=== PATIENT | female | born 1970 | race Caucasian/White ===

== ENCOUNTER 2017-03-21 17:22 | Emergency (ER) | payer MEDICAID ==
[~2017-03-21] VITALS: Ht 167.6 cm; Wt 98.1 kg
[~2017-03-21 17:22] MED LIST: CALCIUM; COLACE100 MG PO; FER300 PO; FERROUS SULFAT325 M2; FERROUS SULFAT325 M2 PO; FLUOXETINE10 M2 PO; MOTRIN; SIMVASTATIN10 M1 PO; VIT D; VITAMIN C500 M4 PO; ZES10 PO
[2017-03-21 18:24] VITALS: BP 143/91
== END 2017-03-21 18:24 | disposition home or self-care (01) ==
LOC: ED 17:22
DX: R05 Cough (principal); E78.5 Hyperlipidemia, unspecified; I10 Essential (primary) hypertension

== ENCOUNTER 2018-04-25 13:12 | Emergency (ER) | payer MEDICAID ==
[~2018-04-25] VITALS: Ht 167.6 cm; Wt 95.2 kg
[2018-04-25 13:17] VITALS: Ht 167.6 cm; Wt 95.2 kg
[2018-04-25 14:14] LABS: BASOPHIL % 0.6 % (0-2); PLATELET COUNT 318 x10^3mcL (130-400)
[2018-04-25 14:20] LABS: RED CELL DISTRIBUTION WIDTH 18.1 % (11.5-14.5)
[2018-04-25 14:28] LABS: CALCIUM 8.6 mg/dL (8.5-10.1); CARBON DIOXIDE 27.4 mmol/L (21-32); CHLORIDE SERUM 103 mmol/L (98-107); CREATININE SERUM 0.5 mg/dL (0.6-1.0); GFR1 > 60 mL/min; GLUCOSE SERUM 93 mg/dL (74-106); POTASSIUM SERUM 4.2 mmol/L (3.5-5.1); SODIUM SERUM 137 mmol/L (136-145)
[2018-04-25 14:31] LABS: ALBUMIN 3.6 g/dL (3.4-5.0); ALKALINE PHOSPHATASE 91 U/L (46-116); ALT/SGPT 15 U/L (14-59); AST/SGOT 9 U/L (15-37); BILIRUBIN TOTAL 0.2 mg/dL (0.20-1.00); CHOLESTEROL 173 mg/dL (<200); CHOLESTEROL/HDL RATIO 4.6; HDL CHOLESTEROL 38 mg/dL (40-60); LIPASE 122 IU/L (73-393); TOTAL PROTEIN, SERUM 7.6 g/dL (6.4-8.2); TRIGLYCERIDES 116 mg/dL (<150)
[2018-04-25 15:05] LABS: FREE THYROXINE INDEX 2.4 ug/dL (1.4-4.5); T4(THYROXINE) 7.5 ug/dL (4.7-13.3)
[2018-04-25 15:06] VITALS: BP 134/73
[2018-04-26 23:06] LABS: T3 TOTAL 1.12 ng/mL
== END 2018-04-25 15:06 | disposition home or self-care (01) ==
LOC: ED 13:12
PROVIDERS: Specialist
DX: F41.9 Anxiety disorder, unspecified (principal); D64.9 Anemia, unspecified; I10 Essential (primary) hypertension; E78.00 Pure hypercholesterolemia, unspecified
CPT/HCPCS: 36415; 83880; 84439

== ENCOUNTER 2018-10-07 16:40 | Emergency (ER) | payer MEDICAID ==
[~2018-10-07] VITALS: Ht 167.6 cm; Wt 94.3 kg
[2018-10-07 17:00] VITALS: Ht 167.6 cm; Wt 94.3 kg
[2018-10-07 18:00] LABS: BASOPHIL % 0.4 % (0-2); PLATELET COUNT 269 x10^3mcL (130-400)
[2018-10-07 18:03] LABS: RED CELL DISTRIBUTION WIDTH 15.4 % (11.5-14.5)
[2018-10-07 18:11] LABS: CALCIUM 8.3 mg/dL (8.5-10.1); CARBON DIOXIDE 27.6 mmol/L (21-32); CHLORIDE SERUM 103 mmol/L (98-107); CREATININE SERUM 0.7 mg/dL (0.6-1.0); GFR1 > 60 mL/min; GLUCOSE SERUM 107 mg/dL (74-106); POTASSIUM SERUM 3.5 mmol/L (3.5-5.1); SODIUM SERUM 137 mmol/L (136-145)
[2018-10-07 18:17] LABS: ALKALINE PHOSPHATASE 86 U/L (46-116); ALT/SGPT 17 U/L (14-59); AST/SGOT 12 U/L (15-37); BILIRUBIN TOTAL 0.2 mg/dL (0.20-1.00); LIPASE 81 IU/L (73-393); TOTAL PROTEIN, SERUM 7.2 g/dL (6.4-8.2)
[2018-10-07 18:18] LABS: ALBUMIN 3.2 g/dL (3.4-5.0)
[2018-10-07 19:20] LABS: UA SPECIFIC GRAVITY <=1.005 (1.005-1.035); microscopic required? YES; urine erythrocyte TRACE (NEGATIVE)
[2018-10-07 20:26] VITALS: BP 135/64
== END 2018-10-07 20:26 | disposition home or self-care (01) ==
LOC: ED 16:40
PROVIDERS: Emergency Medicine
DX: N39.0 Urinary tract infection, site not specified (principal); M54.17 Radiculopathy, lumbosacral region; I10 Essential (primary) hypertension; E78.00 Pure hypercholesterolemia, unspecified; F41.9 Anxiety disorder, unspecified; F32.9 Major depressive disorder, single episode, unspecified
CPT/HCPCS: J7030; Q0162

== ENCOUNTER 2019-07-16 08:35 | Emergency (ER) | payer MEDICAID ==
[~2019-07-16] VITALS: Ht 167.6 cm; Wt 96.3 kg
[2019-07-16 08:53] VITALS: Ht 167.6 cm; Wt 96.3 kg
[2019-07-16 10:50] LABS: CALCIUM 8.1 mg/dL (8.5-10.1); CARBON DIOXIDE 30.8 mmol/L (21-32); CHLORIDE SERUM 104 mmol/L (98-107); CREATININE SERUM 0.5 mg/dL (0.6-1.0); GFR1 > 60 mL/min; GLUCOSE SERUM 92 mg/dL (74-106); POTASSIUM SERUM 4.4 mmol/L (3.5-5.1); SODIUM SERUM 142 mmol/L (136-145)
[2019-07-16 10:54] LABS: ALBUMIN 3.5 g/dL (3.4-5.0); ALKALINE PHOSPHATASE 99 U/L (46-116); ALT/SGPT 24 U/L (14-59); AST/SGOT 13 U/L (15-37); BILIRUBIN TOTAL 0.27 mg/dL (0.20-1.00); CHOLESTEROL 160 mg/dL (<200); HDL CHOLESTEROL 43 mg/dL (40-60); LIPASE 68 IU/L (73-393); TOTAL PROTEIN, SERUM 7.6 g/dL (6.4-8.2)
[2019-07-16 10:57] LABS: BASOPHIL % 0.7 % (0-2); PLATELET COUNT 280 x10^3mcL (130-400)
[2019-07-16 11:20] LABS: RED CELL DISTRIBUTION WIDTH 17.1 % (11.5-14.5)
[2019-07-16 11:32] LABS: microscopic required? NO
[2019-07-16 12:17] LABS: urine erythrocyte NEGATIVE (NEGATIVE)
[2019-07-16 14:46] VITALS: BP 121/62
== END 2019-07-16 14:46 | disposition home or self-care (01) ==
LOC: ED 08:35
PROVIDERS: Emergency Medicine
DX: K21.9 Gastro-esophageal reflux disease without esophagitis (principal); L03.011 Cellulitis of right finger; E78.00 Pure hypercholesterolemia, unspecified; F32.9 Major depressive disorder, single episode, unspecified; I10 Essential (primary) hypertension; F41.9 Anxiety disorder, unspecified; Z98.890 Other specified postprocedural states
CPT/HCPCS: J3490; J7030; Q0092

== ENCOUNTER 2019-08-07 11:27 | Emergency (ER) | payer MEDICAID ==
[~2019-08-07] VITALS: Ht 167.6 cm; Wt 96.2 kg
[2019-08-07 11:32] VITALS: Ht 167.6 cm; Wt 96.2 kg
[2019-08-07 12:08] LABS: BASOPHIL % 0.3 % (0-2); PLATELET COUNT 293 x10^3mcL (130-400)
[2019-08-07 12:23] LABS: CALCIUM 8.6 mg/dL (8.5-10.1); CARBON DIOXIDE 28.7 mmol/L (21-32); CHLORIDE SERUM 105 mmol/L (98-107); CREATININE SERUM 0.6 mg/dL (0.6-1.0); GFR1 > 60 mL/min; GLUCOSE SERUM 92 mg/dL (74-106); POTASSIUM SERUM 4.2 mmol/L (3.5-5.1); SODIUM SERUM 140 mmol/L (136-145)
[2019-08-07 12:28] LABS: ALBUMIN 3.4 g/dL (3.4-5.0); ALKALINE PHOSPHATASE 95 U/L (46-116); ALT/SGPT 17 U/L (14-59); AST/SGOT 14 U/L (15-37); BILIRUBIN TOTAL 0.2 mg/dL (0.20-1.00); TOTAL PROTEIN, SERUM 7.5 g/dL (6.4-8.2)
[2019-08-07 12:38] LABS: RED CELL DISTRIBUTION WIDTH 16.7 % (11.5-14.5)
[2019-08-07 13:54] VITALS: BP 122/71
== END 2019-08-07 13:54 | disposition home or self-care (01) ==
LOC: ED 11:27
PROVIDERS: Specialist
DX: R07.89 Other chest pain (principal); F41.9 Anxiety disorder, unspecified; I10 Essential (primary) hypertension; E78.00 Pure hypercholesterolemia, unspecified; F32.9 Major depressive disorder, single episode, unspecified
CPT/HCPCS: 36415; Q0092

== ENCOUNTER 2020-06-23 22:14 | Emergency (ER) | payer MEDICAID ==
[~2020-06-23] VITALS: Ht 167.6 cm; Wt 102.1 kg
[2020-06-23 22:36] VITALS: Ht 167.6 cm; Wt 102.1 kg
[2020-06-24 02:07] LABS: BASOPHIL % 0.4 % (0-2); PLATELET COUNT 237 x10^3mcL (130-400)
[2020-06-24 02:08] LABS: RED CELL DISTRIBUTION WIDTH 14.7 % (11.5-14.5)
[2020-06-24 02:27] LABS: ALKALINE PHOSPHATASE 70 U/L (46-116); ALT/SGPT 18 U/L (14-59); AST/SGOT 10 U/L (15-37); BILIRUBIN TOTAL 0.19 mg/dL (0.20-1.00); CARBON DIOXIDE 33.4 mmol/L (21-32); CHLORIDE SERUM 106 mmol/L (98-107); CREATININE SERUM 0.7 mg/dL (0.6-1.0); GFR1 > 60 mL/min; GLUCOSE SERUM 96 mg/dL (74-106); POTASSIUM SERUM 4.1 mmol/L (3.5-5.1); SODIUM SERUM 140 mmol/L (136-145); TOTAL PROTEIN, SERUM 6.7 g/dL (6.4-8.2)
[2020-06-24 03:01] LABS: ALBUMIN 3.2 g/dL (3.4-5.0)
[2020-06-24 03:32] VITALS: BP 128/76
== END 2020-06-24 03:35 | disposition home or self-care (01) ==
LOC: ED 22:14
PROVIDERS: Emergency Medicine
DX: B34.9 Viral infection, unspecified (principal); K29.70 Gastritis, unspecified, without bleeding; E86.0 Dehydration; I10 Essential (primary) hypertension; E78.00 Pure hypercholesterolemia, unspecified
CPT/HCPCS: J1885; J2405; J7030

== ENCOUNTER 2020-06-25 23:00 | Emergency (ER) | payer MEDICAID ==
[~2020-06-25] VITALS: Ht 162.6 cm; Wt 98.4 kg
[2020-06-25 23:09] VITALS: Ht 162.6 cm; Wt 98.4 kg
[2020-06-26 00:57] LABS: UA SPECIFIC GRAVITY 1.025 (1.005-1.035); microscopic required? YES; urine erythrocyte 3+ (NEGATIVE)
[2020-06-26 02:53] VITALS: BP 134/58
== END 2020-06-26 02:53 | disposition home or self-care (01) ==
LOC: ED 23:00
PROVIDERS: Emergency Medicine
DX: N39.0 Urinary tract infection, site not specified (principal); K59.00 Constipation, unspecified; I10 Essential (primary) hypertension; E78.00 Pure hypercholesterolemia, unspecified
CPT/HCPCS: J1885; Q0162

== ENCOUNTER 2020-06-28 10:35 | Emergency (ER) | payer MEDICAID ==
[~2020-06-28] VITALS: Ht 167.6 cm; Wt 97.1 kg
[2020-06-28 11:53] LABS: BASOPHIL % 0.4 % (0-2); PLATELET COUNT 319 x10^3mcL (130-400)
[2020-06-28 11:57] LABS: RED CELL DISTRIBUTION WIDTH 14.6 % (11.5-14.5)
[2020-06-28 12:02] LABS: CHLORIDE SERUM 101 mmol/L (98-107); CREATININE SERUM 0.8 mg/dL (0.6-1.0); GFR1 > 60 mL/min; GLUCOSE SERUM 99 mg/dL (74-106); POTASSIUM SERUM 4.4 mmol/L (3.5-5.1); SODIUM SERUM 138 mmol/L (136-145)
[2020-06-28 12:03] LABS: microscopic required? NO
[2020-06-28 12:06] LABS: ALBUMIN 3.6 g/dL (3.4-5.0); ALKALINE PHOSPHATASE 79 U/L (46-116); ALT/SGPT 31 U/L (14-59); AST/SGOT 17 U/L (15-37); BILIRUBIN TOTAL 0.2 mg/dL (0.20-1.00); HDL CHOLESTEROL 38 mg/dL (40-60); MAGNESIUM 2.4 mg/dL (1.8-2.4); TOTAL PROTEIN, SERUM 7.6 g/dL (6.4-8.2)
[2020-06-28 12:07] LABS: CHOLESTEROL 229 mg/dL (<200)
[2020-06-28 12:54] LABS: UA SPECIFIC GRAVITY <=1.005 (1.005-1.035); urine erythrocyte NEGATIVE (NEGATIVE)
[2020-06-28 16:14] VITALS: BP 143/72
== END 2020-06-28 16:14 | disposition home or self-care (01) ==
LOC: ED 10:35
PROVIDERS: Emergency Medicine
DX: R20.2 Paresthesia of skin (principal); T36.8X5A Adverse effect of other systemic antibiotics, initial encounter; I10 Essential (primary) hypertension; E78.00 Pure hypercholesterolemia, unspecified; F41.9 Anxiety disorder, unspecified; E66.9 Obesity, unspecified; Z98.51 Tubal ligation status; Y92.89 Other specified places as the place of occurrence of the external cause
CPT/HCPCS: J1200; J2930; J7050; Q0092